=== PATIENT | male | born 1995 | race Caucasian/White ===

== ENCOUNTER 2018-08-21 16:02 | Emergency (ER) | payer OTHER ==
[2018-08-21 16:43] VITALS: BP 144/85
--- NOTE | 2018-08-21 17:12 | ED ---
GI/ HPI - HPI Summary HPI Summary: pain and dysuria after having sexual relations with his girlfriend, was unprotected however both are monogamous. Has had evaluation in school clinic with negative results, confirmed with second evaluation by independent lab, denies fever, clear discharge from penis . denies fever or chills - History of Current Complaint Chief Complaint: [facility] Time Seen by Provider: 08/21/18 16:40 Stated Complaint: PERSONAL Hx Obtained From: Patient Onset/Duration: Started Days Ago Timing: Lasting Days Severity: Moderate Current Severity: Moderate Pain Intensity: 0 Additional Locations for Males: Penis, Testicles Pain Characteristics: Aching Associated Signs and Symptoms: Positive: Negative - Allergy/Home Medications Allergies/Adverse Reactions: Allergies Allergy/AdvReac Type Severity Reaction Status Date / Time No Known Allergies Allergy Verified 08/21/18 16:32 Home Medications: Home Medications Fexofenadine (NF) [Malathi 180 (NF)] 180 mg PO DAILY PRN 08/21/18 [History Confirmed 08/21/18] raNITIdine HCl [Zantac 75] 75 mg PO DAILY PRN 08/21/18 [History Confirmed ] PMH/Surg Hx/FS Hx/Imm Hx Previously Healthy: Yes Infectious Disease History: No Infectious Disease History: Denies: Traveled Outside the [place] in Last 30 Days - Social History Alcohol Use: Weekly Alcohol Amount: 4-5 days a week Substance Use Type: Reports: None Smoking Status (MU): Former Smoker Review of Systems Constitutional: Negative Eyes: Negative ENT: Negative Cardiovascular: Negative Respiratory: Negative Gastrointestinal: Negative Genitourinary: Other Positive: frequency, pain Musculoskeletal: Negative All Other Systems Reviewed And Are Negative: Yes Physical Exam Triage Information Reviewed: Yes Vital Signs On Initial Exam: Initial Vitals Temp Pulse Resp BP Pulse Ox 36.8 C 84 12 144/85 99 08/21/18 16:35 08/21/18 16:35 08/21/18 16:35 08/21/18 16:35 08/21/18 16:35 Vital Signs Reviewed: Yes Appearance: Positive: Well-Appearing Skin: Positive: Warm, Dry Male Genital Exam: Positive: Normal Genitalia, Other - bilaterally descended testicles, nontender\ rectal exam normal prostate, no evidence for prostatitis Musculoskeletal: Positive: Normal Diagnostics - Vital Signs Vital Signs Temp Pulse Resp BP Pulse Ox 08/21/18 16:35 36.8 C 84 12 144/85 99 - Laboratory Lab Statement: Any lab studies that have been ordered have been reviewed, and results considered in the medical decision making process. GIGU Course/Dx - Diagnoses Provider Diagnoses: Prostatodynia syndrome Discharge - Sign-Out/Discharge Documenting (check all that apply): Patient Departure All imaging exams completed and their final reports reviewed: No Studies - Discharge Plan Condition: Good Disposition: HOME Patient Education Materials: Dysuria (ED) Referrals: No Primary Care Phys,NOPCP [Primary Care Provider] - - Billing Disposition and Condition Condition: GOOD Disposition: Home
== END 2018-08-21 18:03 | disposition home or self-care (01) ==
LOC: UCCORT 16:02
DX: Z87.891 Personal history of nicotine dependence (principal); N42.81 Prostatodynia syndrome
CPT/HCPCS: 81003; 87491; 87591; 99201; G0463